=== PATIENT | male | born 1960 | race African-American/Black ===

== ENCOUNTER 2016-08-29 23:49 | Emergency (ER) | payer OTHER ==
--- NOTE | 2016-08-29 23:55 | PDOC ---
History of Present Illness - General History Source: Patient Exam Limitations: No Limitations - History of Present Illness Initial Comments: 08/30/16 00:16 The patient is a 56 year old male, with a significant past medical history of 2 herniated discs, HTN and hypercholesterolemia, who presents to the emergency department with lower back pain that got severely worse today. The patient describes his back pain as knot sensation at the left side of his lower back. He ranks his pain a 10/10 in pain intensity. He reports the back pain shoots down his leg and has numbness in his LEs which has been a preexisting condition for about a month. He denies chest pain and shortness of breath. He denies fever, chills, headache and dizziness. He denies nausea, vomit, diarrhea and constipation. He denies dysuria, frequency, urgency and hematuria. Allergies: NKDA Social History: Current every day smoker. PCP: Dr. Neal <Abdoulaye Birch - Last Filed: 08/30/16 00:19> <Andreas Kelly - Last Filed: 08/30/16 00:44> - General Chief Complaint: Bleeding from Anus Stated Complaint: LOWER BACK PAIN Time Seen by Provider: 08/29/16 23:53 Past History <Abdoulaye Birch - Last Filed: 08/30/16 00:19> - Past Medical History Anemia: No Asthma: No Cancer: No Cardiac Disorders: No CVA: No COPD: No CHF: No Dementia: No Diabetes: No GI Disorders: No Disorders: No HTN: Yes Hypercholesterolemia: Yes Liver Disease: No Seizures: No Thyroid Disease: No - Surgical History Abdominal Surgery: Yes (HERNIA) - Immunization History Immunization Up to Date: Yes - Psycho/Social/Smoking Cessation Hx Anxiety: No Suicidal Ideation: No Smoking History: Current every day smoker Have you smoked in the past 12 months: Yes Number of Cigarettes Smoked Daily: 8 'Breaking Loose' booklet given: 04/11/16 Hx Alcohol Use: No Drug/Substance Use Hx: No Substance Use Type: None <Andreas Kelly - Last Filed: 08/30/16 00:44> - Past Medical History Allergies/Adverse Reactions: Allergies Allergy/AdvReac Type Severity Reaction Status Date / Time No Known Drug Allergies Allergy Verified 08/30/16 00:06 Home Medications: Ambulatory Orders Ibuprofen [Motrin -] 600 mg PO PRN PRN #0 02/03/16 Methocarbamol [Robaxin -] 750 mg PO Q8H #30 tablet 08/30/16 Review of Systems - Review of Systems Able to Perform ROS?: Yes Comments:: 08/30/16 00:16 CONSTITUTIONAL: No fever, no chills, no fatigue EYES: No visual changes ENT: No ear pain, no sore throat CARDIOVASCULAR: No chest pain, no palpitations RESPIRATORY: No cough, no SOB GI: Yes rectal bleeding No abdominal pain, no nausea, no vomiting, no constipation, no diarrhea GENITOURINARY: No dysuria, no frequency, no hematuria MUSKULOSKELETAL: Yes back pain, no joint pain, no myalgias SKIN: No rash NEURO: No headache <Abdoulaye Birch - Last Filed: 08/30/16 00:19> *Physical Exam - Vital Signs Last Vital Signs Temp Pulse Resp BP Pulse Ox 98.6 F 87 14 144/96 98 08/30/16 00:06 08/30/16 00:06 08/30/16 00:06 08/30/16 00:06 08/30/16 00:06 - Physical Exam Comments: 08/30/16 00:19 CONSTITUTIONAL: Well-appearing; well-nourished; in no apparent distress HEAD: Normocephalic; atraumatic EYES: PERRL; EOM intact ENMT: External appears normal; normal oropharynx NECK: Supple; non-tender; no cervical lymphadenopathy CARD: Normal S1, S2; no murmurs, rubs, or gallops RESP: Normal chest excursion with respiration; breath sounds clear and equal bilaterally; no wheezes, rhonchi, or rales ABD: Soft, non-distended; non-tender; no palpable organomegaly, no palpable hernias EXT: Normal ROM in all four extremities; non-tender to palpation; distal pulses intact SKIN: Warm, dry, no rash BACK: Reproducible left paraspinal tenderness on palpation. NEURO: No focal neurological deficiencies. <Abdoulaye Birch - Last Filed: 08/30/16 00:19> Medical Decision Making - Medical Decision Making 08/30/16 00:43 Patient is a well-appearing 56-year-old male with history of chronic low back pain who presents with atraumatic left paraspinal discomfort and persistent left lower extremity paresthesias. In the ER, patient is awake and alert, afebrile, with reproducible left paraspinal lumbar tenderness to palpation area straight leg raise is negative bilaterally. DTRs are +2 bilaterally. I do not suspect cauda equina or conus medullaris syndrome at this time. We'll administer NSAIDs and will discharge with muscle relaxants with outpatient follow-up as needed. <Andreas Kelly - Last Filed: 08/30/16 00:44> *DC/Admit/Observation/Transfer - Attestations Scribe Attestion: 08/30/16 00:16 Documentation prepared by Abdoulaye Birch, acting as hospital medical biller for Andreas Kelly MD. <Abdoulaye Birch - Last Filed: 08/30/16 00:19> - Attestations Physician Attestion: 08/30/16 00:42 The documentation was prepared by the scribe under my direct supervision. I have reviewed the documentation which correctly represents the findings, medical decision-making and critical action taken by me. <Andreas Kelly - Last Filed: 08/30/16 00:44> Diagnosis at time of Disposition: Low back pain Qualifiers: Chronicity: acute Back pain laterality: left Sciatica presence: with sciatica Sciatica laterality: sciatica of left side Qualified Code(s): M54.42 - Lumbago with sciatica, left side - Discharge Dispostion Disposition: HOME Condition at time of disposition: Stable - Referrals Referrals: [place] Neal MD [Primary Care Provider] - - Patient Instructions Printed Discharge Instructions: DI for Low Back Pain
[2016-08-30 00:09] VITALS: BP 144/96; PULSE 87; TEMP 98.6; BMI 28.8
[2016-08-30] MEDS ORDERED: KETOROLAC TROMETHAMINE 60 MG/2 ML VIAL ONE (00:14)
[2016-08-30] MEDS ORDERED: KETOROLAC TROMETHAMINE 60 MG/2 ML VIAL IM ONE (00:14)
[2016-08-30] MEDS ORDERED: IBUPROFEN 400 MG TABLET (FP) PO ONE ×2 (00:41→00:48)
== END 2016-08-30 01:00 | disposition home or self-care (01) ==
LOC: JER 23:49
PROC: 3E0233Z Introduction of Anti-inflammatory into Muscle, Percutaneous Approach (ICD-10-PCS; principal; 2016-08-29)
DX: M54.42 Lumbago with sciatica, left side (principal)
CPT/HCPCS: 99282-25

== ENCOUNTER 2016-12-21 06:29 | Emergency (ER) | payer OTHER ==
[2016-12-21 07:17] VITALS: TEMP 98.1; BMI 29.2
--- NOTE | 2016-12-21 07:56 | PDOC ---
Attending Attestation - Resident Resident Name: Tim Casillas - ED Attending Attestation I have performed the following: I have examined & evaluated the patient, The case was reviewed & discussed with the resident, I agree w/resident's findings & plan, Exceptions are as noted - HPI HPI: 56 yo M presents with L low back pain. He states that he has history of herniated discs, currently following up with neuro and PMD as an outpatient. Usually he takes 800 mg motrin for his pain, but recently it has not been helping. He had a similar episode with pain in August of this year, improved with muscle relaxer. Pain is not as bad today. Pain is moderate, constant, unrelieved by motrin, localizing to L low back. He notes that the pain started after receiving a spinal injection. - Physicial Exam PE: GENERAL: Awake, alert, and fully oriented, in no acute distress HEAD: No signs of trauma EYES: PERRLA, EOMI, sclera anicteric, conjunctiva clear ENT: Auricles normal inspection, hearing grossly normal, nares patent, oropharynx clear without exudates. Moist mucosa NECK: Normal ROM, supple, no lymphadenopathy, JVD, or masses LUNGS: Breath sounds equal, clear to auscultation bilaterally. No wheezes, and no crackles HEART: Regular rate and rhythm, normal S1 and S2, no murmurs, rubs or gallops ABDOMEN: Soft, nontender, normoactive bowel sounds. No guarding, no rebound. No masses EXTREMITIES: Normal range of motion, no edema. No clubbing or cyanosis. No cords, erythema, or tenderness NEUROLOGICAL: Cranial nerves II through XII grossly intact. Normal speech, normal gait SKIN: Warm, Dry, normal turgor, no rashes or lesions noted. SPINE: No midline tenderness. +Left lumbar paraspinal soft tissue tenderness. - Medical Decision Making 56 yo M history low back pain presents with L low back pain. DDx includes MSK pain, sciatica, UTI, poss kidney stone; with MSK psin being most likely cause. Will give NSAID, muscle relaxer and reassess. May require additional analgesic.
--- NOTE | 2016-12-21 07:58 | PDOC ---
History of Present Illness - General Chief Complaint: Back Pain Stated Complaint: LOWER BACK PAIN Time Seen by Provider: 12/21/16 07:16 History Source: Patient Exam Limitations: No Limitations - History of Present Illness Initial Comments: 56 yo M with h/o sciatica 2/2 disc herniation, HTN, HLD presented to the ED with worsening L flank pain x 1 day. He stated that he has chronic lower back pain at baseline but last night he experienced new pain in the LL flank, non- radiating, 5/10, woke him up from sleep, worse with leaning backward. He's on gabapentin and motrin for his chronic lower back pain and he follows neurologist , orthopedic surgeon and PMD on a regular basis. Denies fever, chills, sob, chest pain, n/v, urinary or bowel symptoms. Past History - Past Medical History Allergies/Adverse Reactions: Allergies Allergy/AdvReac Type Severity Reaction Status Date / Time No Known Drug Allergies Allergy Verified 12/21/16 06:46 Home Medications: Ambulatory Orders Ibuprofen [Motrin -] 600 mg PO PRN PRN #0 02/03/16 Methocarbamol [Robaxin -] 750 mg PO Q8H #30 tablet 08/30/16 Methocarbamol [Robaxin -] 500 mg PO BID #24 tablet 12/21/16 Anemia: No Asthma: No Cancer: No Cardiac Disorders: No CVA: No COPD: No CHF: No Dementia: No Diabetes: No GI Disorders: No Disorders: No HTN: Yes Hypercholesterolemia: Yes Liver Disease: No Seizures: No Thyroid Disease: No - Surgical History Abdominal Surgery: Yes (HERNIA) - Immunization History Immunization Up to Date: Yes - Psycho/Social/Smoking Cessation Hx Anxiety: No Suicidal Ideation: No Smoking History: Never smoked Have you smoked in the past 12 months: No Number of Cigarettes Smoked Daily: 8 Information on smoking cessation initiated: No 'Breaking Loose' booklet given: 04/11/16 Hx Alcohol Use: No Drug/Substance Use Hx: No Substance Use Type: None Review of Systems - Review of Systems Able to Perform ROS?: Yes Is the patient limited Khmer proficient: No Constitutional: No: Chills, Fever Respiratory: No: Cough, Shortness of Breath Cardiac (ROS): No: Chest Pain ABD/GI: No: Nausea, Vomiting : No: Dysuria Musculoskeletal: Yes: Back Pain, Joint Pain, Muscle Pain Neurological: Yes: Numbness (lower extremities) *Physical Exam - Vital Signs Last Vital Signs Temp Pulse Resp BP Pulse Ox 98.1 F 72 20 146/97 100 12/21/16 06:46 12/21/16 06:46 12/21/16 06:46 12/21/16 06:46 12/21/16 06:46 - Physical Exam General Appearance: No: Apparent Distress Neck: positive: Trachea midline, Supple Respiratory/Chest: positive: Lungs Clear, Normal Breath Sounds Cardiovascular: positive: Regular Rhythm, Regular Rate, S1, S2. negative: Murmur Gastrointestinal/Abdominal: positive: Normal Bowel Sounds. negative: Distended , Guarding, Rebound, Tenderness Musculoskeletal: positive: CVA Tenderness (L), Other (LL flank pain, reproducible, local tenderness upon touch) Neurologic: positive: Fully Oriented, Alert, Motor Strength 5/5, Numbness Medical Decision Making - Medical Decision Making 12/21/16 09:43 UA shows microscopic hematuria +[address] shows 3mm stone but no hydronephrosis. Will discharge the patient home and instruct the patient to follow up with his urologist, neurologist, and PMD as scheduled *DC/Admit/Observation/Transfer Diagnosis at time of Disposition: Acute left flank pain - Discharge Dispostion Disposition: HOME Condition at time of disposition: Stable Admit: No - Prescriptions Prescriptions: Methocarbamol [Robaxin -] 500 mg PO BID #24 tablet - Referrals Referrals: [place] Neal MD [Primary Care Provider] - Dilan Wells MD [Staff Physician] - - Patient Instructions Additional Instructions: Your lower left flank pain is likely related to your chronic lower back pain, for which you should continue to take roboxin and motrin as needed. For terminal worker relief, you should continue to follow up with your PMD, neurologist and urologist on a regular basis. Come back in the ER if you experience worse pain with motion, fever or chills.
[2016-12-21] MEDS ORDERED: IBUPROFEN 600 MG TABLET (FP) PO ONE ×2 (07:59→08:05)
[2016-12-21] MEDS ORDERED: METHOCARBAMOL 500 MG TABLET PO ONE (07:59)
[2016-12-21] MEDS ORDERED: METHOCARBAMOL 500 MG TABLET ONE (08:05)
[2016-12-21 08:21] LABS: URINE APPEARANCE CLEAR; URINE BILIRUBIN NEGATIVE (NEGATIVE); URINE COLOR STRAW; URINE GLUCOSE (UA) NEGATIVE (NEGATIVE); URINE KETONE NEGATIVE (NEGATIVE); URINE LEUK ESTERASE NEGATIVE (NEGATIVE); URINE NITRITE NEGATIVE (NEGATIVE); URINE PROTEIN NEGATIVE (NEGATIVE); URINE UROBILINOGEN NEGATIVE E.U./dl (0.2-1.0)
[2016-12-21 08:40] LABS: URINE BLOOD 3+ (NEGATIVE)
[2016-12-21 10:17] LABS: URINE MUCUS RARE; URINE RBC 334 /hpf (0-3); URINE WBC 1 /hpf (3-5)
[2016-12-21 10:18] VITALS: BP 133/80; PULSE 71
== END 2016-12-21 10:18 | disposition home or self-care (01) ==
LOC: JER 06:29
DX: N20.0 Calculus of kidney (principal); M54.30 Sciatica, unspecified side; I10 Essential (primary) hypertension; E78.00 Pure hypercholesterolemia, unspecified
CPT/HCPCS: 74176; 81003; 81015; 99282-25

== ENCOUNTER 2017-10-28 23:01 | Emergency (ER) | payer OTHER ==
[2017-10-28 23:21] VITALS: BP 137/73; PULSE 71; TEMP 98; BMI 28.3
[2017-10-29] MEDS ORDERED: KETOROLAC TROMETHAMINE 30 MG/1 ML VIAL IVPUSH ONE (00:25)
[2017-10-29] MEDS ORDERED: diazePAM 5 MG TABLET PO ONE (00:25)
[2017-10-29] MEDS ORDERED: ASPIRIN 325 MG ENTERIC COATED TABLET (FP) PO ONE (00:25)
[2017-10-29] MEDS ORDERED: ASPIRIN 325 MG ENTERIC COATED TABLET (FP) ONE (01:29)
[2017-10-29] MEDS ORDERED: diazePAM 5 MG TABLET ONE (01:30)
[2017-10-29] MEDS ORDERED: KETOROLAC TROMETHAMINE 30 MG/1 ML VIAL ONE (01:30)
--- NOTE | 2017-10-29 01:37 | PDOC ---
History of Present Illness - General Chief Complaint: Pain Stated Complaint: PAIN Time Seen by Provider: 10/29/17 00:11 History Source: Patient Exam Limitations: No Limitations - History of Present Illness Initial Comments: 10/29/17 01:28 Patient is a 57-year-old male with history of arthritis, hypertension, HLD - diet control, chronic back pain, carpal tunnel surgery, inguinal hernia repair bilateral, complaining of chest pain which started today. was driving and he had sudden onset of shortness of breath and had chest pressure which lasted for few mins. States today which going to bed about 11pm the chest pain and sob returned. States chest pain is midsternal, pressure-like, 10. He attributes this chest pain having a lot of stress about his chronic medical condition and his inability to get the needed surgery due to insurance. Patient is also here for his chronic back pain. States he is in pain every day , but today it is worse. He took Motrin this morning with no relief. States initially comes stating emergency room and he is given a shot of medication in the IV which makes him feel better. PMD: Dr. Rosen Pain management: Dr. Wade Orthopedics: Dr. Reid All: NKDA GENERAL/CONSTITUTIONAL: [No fever or chills. No weakness. No weight change.] HEAD, EYES, EARS, NOSE AND THROAT: [No change in vision. No ear pain or discharge. No sore throat.] CARDIOVASCULAR: (+)chest pain or shortness of breath.] RESPIRATORY: [No cough, wheezing, or hemoptysis.] GASTROINTESTINAL: [No nausea, vomiting, diarrhea or constipation. No rectal bleeding.] GENITOURINARY: [No dysuria, frequency, or change in urination.] MUSCULOSKELETAL: (+) joint or muscle swelling or pain. No neck (+) back pain.] SKIN AND BREASTS: [No rash or easy bruising.] NEUROLOGIC: [No headache, vertigo, loss of consciousness, or loss of sensation.] PSYCHIATRIC: [No depression or anxiety.] ENDOCRINE: [No increased thirst. No abnormal weight change.] HEMATOLOGIC/LYMPHATIC: [No anemia, easy bleeding, or history of blood clots.] ALLERGIC/IMMUNOLOGIC: [No hives or skin allergy. No latex allergy.] GENERAL: [The patient is awake, alert, and fully oriented, in painful distress.] HEAD: [Normal with no signs of trauma.] EYES: [Pupils equal, round and reactive to light, extraocular movements intact, sclera anicteric, conjunctiva clear.] ENT: [Ears normal, nares patent, oropharynx clear without exudates. Moist mucous membranes.] NECK: [Normal range of motion, supple without lymphadenopathy, JVD, or masses.] LUNGS: [Breath sounds equal, clear to auscultation bilaterally. No wheezes, and no crackles.] HEART: [Regular rate and rhythm, normal S1 and S2 without murmur, rub.] ABDOMEN: [Soft, nontender, normoactive bowel sounds. No guarding, no rebound. No masses.] BACK: Paraspinal lumbar tenderness EXTREMITIES: [Normal range of motion, no edema. No clubbing or cyanosis. No cords, erythema, or tenderness.] NEUROLOGICAL: [Cranial nerves II through XII grossly intact. Normal speech, normal gait.] PSYCH: [Normal mood, normal affect.] SKIN: [Warm, Dry, normal turgor, no rashes or lesions noted.] Past History - Past Medical History Allergies/Adverse Reactions: Allergies Allergy/AdvReac Type Severity Reaction Status Date / Time No Known Drug Allergies Allergy Verified 10/28/17 23:16 Home Medications: Ambulatory Orders Methocarbamol [Robaxin -] 750 mg PO Q8H #30 tablet 08/30/16 Diclofenac Sodium [Diclo Gel] 1 each TP BID 10/29/17 Diclofenac Sodium [Diclofenac Sodium ER] 100 mg PO DAILY 10/29/17 Ibuprofen 800 mg PO TID PRN 10/29/17 Indomethacin 50 mg PO DAILY 10/29/17 Melatonin 5 mg PO HS 10/29/17 Meloxicam 15 mg PO DAILY 10/29/17 Trazodone HCl 50 mg PO DAILY 10/29/17 Anemia: No Asthma: No Cancer: No Cardiac Disorders: No CVA: No COPD: No CHF: No Dementia: No Diabetes: No GI Disorders: No Disorders: No HTN: Yes Hypercholesterolemia: Yes Liver Disease: No Seizures: No Thyroid Disease: No - Surgical History Abdominal Surgery: Yes (B/l inguinal hernias) - Immunization History Immunization Up to Date: Yes - Suicide/Smoking/Psychosocial Hx Smoking History: Current every day smoker Have you smoked in the past 12 months: No Number of Cigarettes Smoked Daily: 8 Information on smoking cessation initiated: No 'Breaking Loose' booklet given: 04/11/16 Hx Alcohol Use: No Drug/Substance Use Hx: No Substance Use Type: None Cardiac Specific PMH - Complaint Specific PMHX Pacemaker: No *Physical Exam - Vital Signs Last Vital Signs Temp Pulse Resp BP Pulse Ox 98.0 F 71 20 137/73 98 10/28/17 23:16 10/28/17 23:16 10/28/17 23:16 10/28/17 23:16 10/29/17 00:15 ED Treatment Course - LABORATORY CBC & Chemistry Diagram: 10/29/17 01:45 10/29/17 02:50 - ADDITIONAL ORDERS Additional order review: Laboratory Results 10/29/17 10/29/17 10/29/17 02:50 01:45 01:44 PT with INR 10.40 INR 0.92 Sodium 143 Cancelled Potassium 4.0 Cancelled Chloride 108 H Cancelled Carbon Dioxide 22 D Cancelled Anion Gap 13 Cancelled BUN 23 H D Cancelled Creatinine 0.9 Cancelled Creat Clearance w eGFR > 60 Random Glucose 97 Cancelled Calcium 8.5 Cancelled Total Bilirubin 0.4 AST 20 ALT 24 Alkaline Phosphatase 92 Creatine Kinase 399 H Cancelled Troponin I 0.03 Cancelled Total Protein 6.6 Albumin 3.3 L 10/29/17 01:45 RBC 5.83 H MCV 80.9 MCHC 34.0 RDW 14.2 MPV 8.3 Neutrophils % 59.7 Lymphocytes % 29.9 D Monocytes % 7.3 Eosinophils % 2.8 D Basophils % 0.3 - RADIOLOGY Radiology Studies Ordered: Category Date Time Status CHEST PA & LAT [RAD] Stat Radiology 10/29/17 00:23 Taken - Medications Given in the ED: ED Medications Discontinued Medications Generic Name Dose Route Start Last Admin Trade Name Freq PRN Reason Stop Dose Admin Aspirin 325 mg 10/29/17 00:25 10/29/17 01:40 Ecotrin - PO 10/29/17 00:26 325 mg ONCE ONE Administration Diazepam 5 mg 10/29/17 00:25 10/29/17 01:41 Valium - PO 10/29/17 00:26 5 mg ONCE ONE Administration Ketorolac Tromethamine 30 mg 10/29/17 00:25 10/29/17 01:41 Toradol Injection - IVPUSH 10/29/17 00:26 30 mg ONCE ONE Administration Medical Decision Making - Medical Decision Making 10/29/17 01:38 Patient is a 57-year-old male with history of arthritis, hypertension, HLD - diet control, chronic back pain, carpal tunnel surgery, inguinal hernia repair bilateral, complaining of chest pain which started today. Patient has hypertension hyperlipidemia and is at some risk will get trop x 2. labs, asa Also complaining of lower back pain which is chronic did not take meds. will given toradol and valium for the pain. EKG: Sinus rhythm 62, and right ear, T-wave inversion to II, III, aVF, V5 and V6 10/29/17 01:55 cxr neg 10/29/17 03:57 labs reviewed not acute finding trop neg. However patient is not willing to wait for repeat enzymes. States wants to sign out AMA. *DC/Admit/Observation/Transfer Diagnosis at time of Disposition: Chest pain Qualifiers: Chest pain type: unspecified Qualified Code(s): R07.9 - Chest pain, unspecified - Discharge Dispostion Disposition: AGAINST MEDICAL ADVICE Condition at time of disposition: Stable - Referrals Referrals: Emigdio Reid MD [Primary Care Provider] - - Patient Instructions Additional Instructions: Follow-up with her PMD in 24 hours for further testing and referral to cardiology for evaluation. - Post Discharge Activity
[2017-10-29 02:22] LABS: BASO % 0.3 % (0-2.0); EOS % 2.8 % (0-4.5); HEMATOCRIT 47.2 % (35.4-49); LYMPH % 29.9 % (8-40); MCH 27.5 pg (25.7-33.7); MEAN CELL VOLUME 80.9 fl (80-96); MEAN PLT VOLUME 8.3 fl (7.5-11.1); MONO % 7.3 % (3.8-10.2); NEUT % 59.7 % (42.8-82.8); PLATELET COUNT 203 K/MM3 (134-434); RBC 5.83 M/mm3 (4.00-5.60); RDW 14.2 % (11.9-15.9); WHITE BLOOD COUNT 8.7 K/mm3 (4.0-10.0)
[2017-10-29 02:35] LABS: INR 0.92 (0.82-1.09); PROTHROMBIN TIME (PATIENT) 10.4 SEC (9.98-11.88)
[2017-10-29 03:38] LABS: ALBUMIN 3.3 g/dl (3.4-5.0); ANION GAP 13 (8-16); BILIRUBIN,TOTAL 0.4 mg/dL (0.2-1.0); BLOOD UREA NITROGEN 23 mg/dL (7-18); CALCIUM 8.5 mg/dL (8.5-10.1); CHLORIDE 108 mmol/L (98-107); CO2 22 mmol/L (21-32); CREATININE 0.9 mg/dL (0.7-1.3); GLUCOSE,RANDOM 97 mg/dL (74-106); SGOT/AST 20 U/L (15-37); SGPT/ALT 24 U/L (12-78); SODIUM 143 mmol/L (136-145); TOT PROT 6.6 g/dl (6.4-8.2)
[2017-10-29 03:41] LABS: ALK PHOS 92 U/L (45-117)
--- NOTE | 2017-10-29 09:58 | EKG ---
Test Reason : Blood Pressure : / mmHG Vent. Rate : 062 BPM Atrial Rate : 062 BPM P-R Int : 144 ms QRS Dur : 100 ms QT Int : 378 ms P-R-T Axes : 061 037 -48 degrees QTc Int : 383 ms NORMAL SINUS RHYTHM T WAVE ABNORMALITY, CONSIDER INFEROLATERAL ISCHEMIA ABNORMAL ECG WHEN COMPARED WITH ECG OF 05-DEC-2009 12:49, T WAVE INVERSION MORE EVIDENT IN INFERIOR LEADS INVERTED T WAVES HAVE REPLACED NONSPECIFIC T WAVE ABNORMALITY IN LATERAL LEADS Confirmed by GILLIAN ARIAS MD ([id number]) on 10/29/2017 9:58:23 AM Referred By: Confirmed By:GILLIAN ARIAS MD
== END 2017-10-29 04:16 | disposition left against medical advice (07) ==
LOC: JER 23:01
PROC: 3E0333Z Introduction of Anti-inflammatory into Peripheral Vein, Percutaneous Approach (ICD-10-PCS; principal; 2017-10-28)
DX: R07.9 Chest pain, unspecified (principal); I10 Essential (primary) hypertension; E78.00 Pure hypercholesterolemia, unspecified; M12.9 Arthropathy, unspecified; M54.89 Other dorsalgia; G89.29 Other chronic pain
CPT/HCPCS: 36415; 71046-TC-FY; 80053; 82550; 82553; 84484; 85025; 85610; 93005; 93010; 99283-25

== ENCOUNTER 2018-03-17 10:00 | Inpatient (IN) | payer OTHER ==
[2018-03-04 14:18] VITALS: BMI 29.5
--- NOTE | 2018-03-16 17:58 | HP ---
Admitting History and Physical - Admission Chief Complaint: right knee osteoarthritis x years History of Present Illness: 57 year old male presents regarding his right knee. Longstanding history of right knee osteoarthritis. He complains of pain, limited ROM, difficulty ambulating and difficulty with activities of daily living. Patient has failed conservative treatment measures including PO medication, activity modification, exercise programs and injections. At this point, patient wishes to proceed with surgical intervention - right total knee arthroplasty, MAKOplasty. History Source: Patient - Past Medical History Cardiovascular: Yes: HTN Musculoskeletal: Yes: Osteoarthritis - Past Surgical History Additional Past Surgical History: See written history & physical. - Smoking History Smoking history: Current every day smoker Have you smoked in the past 12 months: Yes Aproximately how many cigarettes per day: 15 - Alcohol/Substance Use Hx Alcohol Use: No (RARE) Home Medications - Allergies Allergies/Adverse Reactions: Allergies Allergy/AdvReac Type Severity Reaction Status Date / Time No Known Drug Allergies Allergy Verified 03/04/18 14:05 - Home Medications Home Medications: Ambulatory Orders Diclofenac Sodium [Diclofenac Sodium ER] 100 mg PO DAILY PRN 10/29/17 Ibuprofen 600 mg PO BID PRN 03/04/18 Losartan Potassium 50 mg PO DAILY 03/04/18 Methocarbamol 500 mg PO BID PRN 03/04/18 Multivitamin [One Daily] 1 each PO DAILY 03/04/18 Review of Systems - Review of Systems Musculoskeletal: reports: Crepitus (right knee), Decreased ROM (right knee), Joint Pain (right knee), Joint Swelling (right knee) Physical Examination Constitutional: Yes: Well Nourished, No Distress Eyes: Yes: Conjunctiva Clear HENT: Yes: Atraumatic, Normocephalic Neck: Yes: Supple Cardiovascular: Yes: Regular Rate and Rhythm Respiratory: Yes: Regular Gastrointestinal: Yes: Soft ...Rectal Exam: Yes: Deferred Musculoskeletal: Yes: Joint Stiffness (right knee), Joint Swelling (right knee) Assessment/Plan 57 year old male presents regarding his right knee. Longstanding history of right knee osteoarthritis. He complains of pain, limited ROM, difficulty ambulating and difficulty with activities of daily living. Patient has failed conservative treatment measures including PO medication, activity modification, exercise programs and injections. At this point, patient wishes to proceed with surgical intervention - right total knee arthroplasty, MAKOplasty. Pros, cons, risks, benefits and alternatives of a right total knee arthroplasty, MAKOplasty - were discussed with the patient at length. Patient confirms his understanding and consents to proceed with a right total knee arthroplasty, MAKOplasty.
[~2018-03-17 10:00] MED LIST: CEFAZOLIN 2 GM in DEXTROSE 5%-WATER - 50 ML IVPB ONE; CELECOXIB 200 MG CAPSULE PO ONE; GABAPENTIN 300 MG CAPSULE (FP) PO ONE; PANTOPRAZOLE 40 MG TABLET (FP) PO ONE; ROPIVICAINE 0.2%/MORPH PF/KETOROLAC - 51ML DISP.SYRINGE IA ONE; TRANEXAMIC ACID 1000 MG/10 ML VIAL IVPUSH ONE; oxyCODONE HCL 10 MG SUSTAINED ACTING TABLET PO ONE
[2018-03-17] MEDS ORDERED: PANTOPRAZOLE 40 MG TABLET (FP) ONE (10:18)
[2018-03-17] MEDS ORDERED: CELECOXIB 200 MG CAPSULE ONE (10:19)
[2018-03-17] MEDS ORDERED: oxyCODONE HCL 10 MG SUSTAINED ACTING TABLET ONE (10:19)
[2018-03-17] MEDS ORDERED: GABAPENTIN 300 MG CAPSULE (FP) ONE (10:19)
[2018-03-17] MEDS ORDERED: ROPIVICAINE 0.2%/MORPH PF/KETOROLAC - 51ML DISP.SYRINGE IA ONE ×2 (13:57→17:17)
[2018-03-17] MEDS ORDERED: VANCOMYCIN 1,000 MG VIAL (RESTRICTED TO ID ONLY) ONE (13:59)
[2018-03-17] MEDS ORDERED: ceFAZolin SODIUM 1 GM VIAL ONE ×2 (13:59→15:07)
[2018-03-17] MEDS ORDERED: TRANEXAMIC ACID 1000 MG/10 ML VIAL ONE ×2 (13:59→17:55)
[2018-03-17] MEDS ORDERED: MIDAZOLAM HCL 2 MG/2 ML SINGLE DOSE VIAL ONE ×2 (14:53→16:08)
[2018-03-17] MEDS ORDERED: BUPIVACAINE LIPOSOME/PF (EXPAREL) 266 MG/20 ML VIAL ONE (14:54)
[2018-03-17] MEDS ORDERED: ONDANSETRON 4 MG/2 ML VIAL ONE (15:07)
[2018-03-17] MEDS ORDERED: LIDOCAINE HCL/PF 2% SDV 5ML VIAL ONE (15:07)
[2018-03-17] MEDS ORDERED: ONDANSETRON 4 MG/2 ML VIAL IVPUSH PRN ×2 (16:09→19:38)
[2018-03-17] MEDS ORDERED: ePHEDrine SULFATE 50 MG/1 ML AMPULE ONE (16:40)
[2018-03-17] MEDS ORDERED: VANCOMYCIN 1,000 MG VIAL (RESTRICTED TO ID ONLY) IVPB ONE (17:17)
[2018-03-17] MEDS ORDERED: TRANEXAMIC ACID 1000 MG/10 ML VIAL IVPB ONE (17:19)
--- NOTE | 2018-03-17 19:37 | OP ---
Operative Note - Note: Operative Date: 03/17/18 Pre-Operative Diagnosis: right knee OA Operation: Right MAKOplasty TKA Post-Operative Diagnosis: Same as Pre-op Surgeon: Emigdio Reid Supervisor Respiratory: Sheyla Mcdonald Anesthesia: Spinal Estimated Blood Loss (mls): 200
[2018-03-17] MEDS ORDERED: MAGNESIUM HYDROX 2400MG/30ML ORAL SUSPENSION 30 ML CUP PO PRN (19:38)
[2018-03-17] MEDS ORDERED: MAG HYDROX/AL HYDROX/SIMETH 30 ML UNIT-DOSE CUP PO PRN (19:38)
[2018-03-17] MEDS ORDERED: ACETAMINOPHEN 1000 MG/100 ML VIAL (NON FORMULARY) IVPB ONE (19:40)
[2018-03-17] MEDS ORDERED: LACTATED RINGERS SOLUTION 1,000 ML IV SCH (19:45)
[2018-03-17] MEDS: traMADol HCL 50 MG TABLET PO SCH (20:40)
[2018-03-17] MEDS ORDERED: GABAPENTIN 300 MG CAPSULE (FP) PO SCH (22:00)
[2018-03-17] MEDS: KETOROLAC TROMETHAMINE 30 MG/1 ML VIAL IVPUSH SCH (22:24)
[2018-03-17] MEDS: GABAPENTIN 300 MG CAPSULE (FP) PO SCH (22:28)
[2018-03-17] MEDS: ASCORBIC ACID 500 MG TABLET (FP) PO SCH (22:28)
[2018-03-17] MEDS: oxyCODONE HCL 10 MG SUSTAINED ACTING TABLET PO SCH (22:28)
[2018-03-17] MEDS: CELECOXIB 200 MG CAPSULE PO SCH (22:30)
[2018-03-17] MEDS: SENNOSIDES/DOCUSATE COMBO (SENNA PLUS) TABLET (UD) PO SCH (22:30)
[2018-03-17] MEDS: ACETAMINOPHEN 325 MG TABLET (FP) PO SCH (22:38)
[2018-03-18] MEDS: ACETAMINOPHEN 325 MG TABLET (FP) PO SCH ×3 (01:32→12:45)
[2018-03-18] MEDS: CEFAZOLIN 2 GM in DEXTROSE 5%-WATER - 50 ML IVPB SCH ×2 (01:32→09:30)
[2018-03-18] MEDS: KETOROLAC TROMETHAMINE 30 MG/1 ML VIAL IVPUSH SCH ×3 (01:32→12:44)
[2018-03-18] MEDS ORDERED: DEXAMETHASONE SOD PHOSPHATE 10 MG/1 ML VIAL IVPB ONE (04:00)
[2018-03-18] MEDS: oxyCODONE HCL 5 MG TABLET PO PRN ×2 (04:57→17:45)
[2018-03-18] MEDS: traMADol HCL 50 MG TABLET PO SCH ×3 (06:56→12:45)
[2018-03-18 08:15] LABS: HEMOGLOBIN 14.8 GM/dl (11.7-16.9); MCH 26.5 pg (25.7-33.7); MCHC 32.3 g/dl (32.0-35.9); MEAN CELL VOLUME 82.1 fl (80-96); MEAN PLT VOLUME 8.2 fl (7.5-11.1); PLATELET COUNT 206 K/MM3 (134-434); RDW 13.1 % (11.9-15.9); WHITE BLOOD COUNT 12.4 K/mm3 (4.0-10.8)
[2018-03-18] MEDS: ASPIRIN 325 MG TABLET PO SCH (08:21)
[2018-03-18 08:29] LABS: ANION GAP 5 (8-16); BLOOD UREA NITROGEN 20 mg/dl (7-18); CALCIUM 8.8 mg/dl (8.4-10.2); CHLORIDE 107 mmol/L (98-107); CO2 24 mmol/L (22-28); CREATININE 1.1 mg/dl (0.6-1.3); GLUCOSE,RANDOM 97 mg/dl (74-106); POTASSIUM 4.3 mmol/L (3.5-5.1); SODIUM 136 mmol/L (136-145)
[2018-03-18] MEDS: CELECOXIB 200 MG CAPSULE PO SCH ×2 (09:30→23:02)
[2018-03-18] MEDS: SENNOSIDES/DOCUSATE COMBO (SENNA PLUS) TABLET (UD) PO SCH ×2 (09:30→23:02)
[2018-03-18] MEDS: oxyCODONE HCL 10 MG SUSTAINED ACTING TABLET PO SCH ×2 (09:31→23:02)
[2018-03-18] MEDS: GABAPENTIN 300 MG CAPSULE (FP) PO SCH ×2 (09:31→23:02)
[2018-03-18] MEDS: ASCORBIC ACID 500 MG TABLET (FP) PO SCH ×2 (09:31→23:03)
[2018-03-18] MEDS: PANTOPRAZOLE 40 MG TABLET (FP) PO SCH (09:31)
[2018-03-18] MEDS: LOSARTAN POTASSIUM 50 MG TABLET (FP) PO SCH (09:31)
[2018-03-18] MEDS: MULTIVITAMINS (DAILY MVI) TABLET (FP) PO SCH (09:34)
--- NOTE | 2018-03-18 10:30 | PN ---
Progress Note (short form) - Note Progress Note: 57M POD1 s/p R TKR under spinal anesthetic with peripheral nerve blocks for post operative pain relief. Pt states that pain is well controlled and reports no anesthetic complications. AVSS. Motor and sensory function intact in bilateral lower extremities. Continue current regimen.
[2018-03-18] MEDS: NICOTINE 21 MG/24 HOURS TOPICAL PATCH TD SCH (14:09)
--- NOTE | 2018-03-18 18:36 | PN ---
Progress Note (short form) - Note Progress Note: Pt seen and examined. Doing well. AVSS Selected Entries 03/18/18 03/18/18 22:00 23:05 Temperature 98.1 F Pulse Rate 58 L Respiratory 18 Rate Blood Pressure 75 Mean O2 Sat by Pulse 98 Oximetry (%) Oxygen Delivery Room Air Method Laboratory Tests 03/18/18 03/18/18 07:47 07:47 WBC 12.4 H Hgb 14.8 Hct 46.0 Plt Count 206 Sodium 136 Potassium 4.3 Chloride 107 Carbon Dioxide 24 Anion Gap 5 L BUN 20 H Creatinine 1.1 Creat Clearance w eGFR > 60 Random Glucose 97 Calcium 8.8 Gen: NAD RLE: c/d/i, NVID A/P s/p R TKA PT/OOB D/C home Wednesday
[2018-03-19] MEDS: ACETAMINOPHEN 325 MG TABLET (FP) PO SCH ×2 (00:38→07:30)
[2018-03-19] MEDS: traMADol HCL 50 MG TABLET PO SCH ×2 (02:00→08:05)
[2018-03-19] MEDS: oxyCODONE HCL 5 MG TABLET PO PRN ×2 (06:39→09:40)
[2018-03-19 07:03] VITALS: BP 117/46; PULSE 50; TEMP 97.9
[2018-03-19] MEDS: ASPIRIN 325 MG TABLET PO SCH (07:58)
[2018-03-19 09:07] LABS: HEMATOCRIT 41.7 % (35.4-49); HEMOGLOBIN 13.9 GM/dl (11.7-16.9); MCH 27.1 pg (25.7-33.7); MCHC 33.3 g/dl (32.0-35.9); MEAN CELL VOLUME 81.5 fl (80-96); MEAN PLT VOLUME 8.9 fl (7.5-11.1); PLATELET COUNT 196 K/MM3 (134-434); RBC 5.12 M/mm3 (4.00-5.60); RDW 13.5 % (11.9-15.9); WHITE BLOOD COUNT 15.2 K/mm3 (4.0-10.8)
[2018-03-19] MEDS: CELECOXIB 200 MG CAPSULE PO SCH (09:59)
[2018-03-19] MEDS: oxyCODONE HCL 10 MG SUSTAINED ACTING TABLET PO SCH (09:59)
[2018-03-19] MEDS: GABAPENTIN 300 MG CAPSULE (FP) PO SCH (09:59)
[2018-03-19] MEDS: LOSARTAN POTASSIUM 50 MG TABLET (FP) PO SCH (09:59)
[2018-03-19] MEDS: SENNOSIDES/DOCUSATE COMBO (SENNA PLUS) TABLET (UD) PO SCH (09:59)
[2018-03-19] MEDS: ASCORBIC ACID 500 MG TABLET (FP) PO SCH (10:00)
[2018-03-19] MEDS: PANTOPRAZOLE 40 MG TABLET (FP) PO SCH (10:00)
[2018-03-19] MEDS: NICOTINE 21 MG/24 HOURS TOPICAL PATCH TD SCH (10:00)
[2018-03-19] MEDS: MULTIVITAMINS (DAILY MVI) TABLET (FP) PO SCH (10:00)
--- NOTE | 2018-03-19 12:23 | DS ---
Physical Examination Vital Signs: Vital Signs Temperature 97.9 F 03/19/18 06:00 Pulse Rate 50 L 03/19/18 06:00 Respiratory Rate 20 03/19/18 06:00 Blood Pressure 117/46 03/19/18 06:00 O2 Sat by Pulse Oximetry (%) 100 03/19/18 06:00 Labs: CBC, BMP 03/19/18 07:20 03/18/18 07:47 Discharge Summary Reason For Visit: RIGHT KNEE OSTEOARTHRITIS Current Active Problems Osteoarthritis of right knee (Acute) Procedures: Principal: right makayla TKA Hospital Course: Admitted for elective surgery. Procedure performed without complications. Pt received postoperative antibiotic prophylaxis and DVT ppx. Ambulated with physical therapy. Stable for discharge home with outpatient followup. Condition: Stable - Instructions Diet, Activity, Other Instructions: Dr. Reid - Knee Replacement Instructions Keep the Aquacel dressing on until removed by Dr. Reid in 10-14 days - it is antibacterial and waterproof and you can shower with it on. Call the office for a follow-up appointment with Dr. Reid in 10-14 days. [phone] Take one Aspirin 325mg daily for 6 weeks to prevent blood clots in your legs. Take one Pantoprazole 40mg daily for 6 weeks to protect against heartburn and ulcers. Take Cephalexin (antibiotic) 3x/day for 10 days to help prevent skin infection. Take Celebrex 200mg twice daily for 30 days to reduce swelling and inflammation. Take a multivitamin, stool softener, and extra Vitamin C supplement daily. For pain: *Mild pain (1-3/10): Take 1 Tramadol tablet every 4 hours as needed. Moderate pain (4-6/10): Take 1 Tramadol tablet and 1 Percocet tablet every 4 hours as needed. Severe pain (7-10/10): Take 1 Tramadol tablet and 2 Percocet tablets every 4 hours as needed. Activity: You can put as much weight on the operative leg as you want. Right after you get home, there will be a physical therapist coming to your house to help you walk around and bend/straighten your knee. After your follow-up appointment, you will be sent for more intensive outpatient physical therapy which will include machines and equipment that the home therapist cannot bring to your house. Always use a walker or cane for balance and to prevent falls. Expect to see swelling/bruising from the operative site all the way down to your toes. Wear the compression stocking on the operative side during the day to minimize how much swelling there is in your foot/ankle. Don't wear the stocking at night. You don't have to wear a stocking on the other side. Disposition: VNS/HOME HEALTH CARE - Home Medications Comprehensive Discharge Medication List: Ambulatory Orders Losartan Potassium 50 mg PO DAILY 03/04/18 Methocarbamol 500 mg PO BID PRN 03/04/18 Multivitamin [One Daily] 1 each PO DAILY 03/04/18 Winthrop-3 Fatty Acids [Winthrop-3] 1,000 mg PO DAILY 03/17/18 Ascorbic Acid [Vitamin C -] 500 mg PO BID tablet 03/19/18 Aspirin [ASA -] 325 mg PO DAILY@0800 tablet 03/19/18 Celecoxib [CeleBREX -] 200 mg PO BID #60 capsule 03/19/18 Cephalexin Monohydrate [Keflex -] 500 mg PO TID #30 capsule 03/19/18 Multivitamins [Multivit ([facility] Formulary)] 1 tab PO DAILY tab 03/19/18 Nicotine Patch [Nicoderm Patch -] 21 mg TD DAILY #30 patch 03/19/18 Oxycodone HCl/Acetaminophen [Percocet 5-325 mg Tablet] 1 - 2 tab PO Q4H PRN #60 tablet MDD 10 03/19/18 Pantoprazole Sodium [Protonix -] 40 mg PO DAILY #40 tablet.ec 03/19/18 Sennosides/Docusate Sodium [Pericolace -] 1 tablet PO BID tablet 03/19/18 traMADol HCL [Ultram -] 50 mg PO Q4H PRN #42 tablet MDD 6 03/19/18
--- NOTE | 2018-03-22 11:39 | PATH ---
Surgical Pathology Report Patient Name: JOHNNY LOERA Med. Rec. #: [id number] /Age/Gender: 1960 (Age: 57) / M Account: [id number] Location: [facility] MED-SURG Taken: 03/17/2018 Received: 03/17/2018 Reported: 03/22/2018 Physicians: Emigdio Reid M.D. Specimen(s) Received RIGHT KNEE BONE Clinical History Right knee osteoarthritis Final Diagnosis KNEE BONE, RIGHT, TOTAL KNEE REPLACEMENT: DEGENERATIVE JOINT DISEASE. Electronically Signed Citlaly Hathaway M.D. Gross Description Received in formalin labeled "right knee bone," is a 14.0 x 13.0 x 2.0 cm aggregate of multiple portions of bone and soft tissue. The tibial plateau measures 8.2 x 6.0 x 1.8 cm. There are multiple areas of eburnation present, measuring up to 3.3 cm in greatest dimension. The remaining articular surfaces are parson-brown and diffusely granular. The underlying trabecular bone is yellow and hard. [employer] sections are submitted in one cassette, following decalcification. 03/18/2018 [facility]03/18/2018
--- NOTE | 2018-03-31 00:32 | SPEC ---
DATE OF OPERATION: 03/17/2018 PREOPERATIVE DIAGNOSIS: Right knee osteoarthritis. POSTOPERATIVE DIAGNOSIS: Right knee osteoarthritis. PROCEDURE: Right total knee replacement with MAKOplasty robotic navigation. ATTENDING SURGEON: Emigdio Reid MD BILLET RECORDER: BISMARK Mike ANESTHESIA: Spinal plus sedation. ESTIMATED BLOOD LOSS: 200 mL. COMPLICATIONS: None. DISPOSITION: The patient was transferred to the PACU in stable condition. IMPLANTS USED: [place] triathlon size 5 femoral component, size 6 tibial component, 35-mm patellar component, 16-mm posterior stabilized polyethylene component. INDICATIONS: This is a 57-year-old male with a longstanding history of right knee osteoarthritis who presented to the office complaining of knee pain. He was seen and examined by Dr. Reid and it was determined that his arthritis was severe. He had undergone an extensive period of conservative management and had failed nonoperative treatment. He continued to have severe pain and ambulatory dysfunction. He was therefore indicated for a right total knee replacement. The risks, benefits, and alternatives to the surgery were explained to the patient in great detail. He elected to proceed with the procedure. DESCRIPTION OF PROCEDURE: On the day of surgery, the patient was taken to the operating room and placed on the OR table. Spinal anesthesia was administered by the anesthesiologist. The patient was then positioned supine on the table and all bony prominences were padded. The knee was then prepped and draped in the usual sterile fashion and intravenous antibiotics were given for infection prophylaxis. A surgical time-out was then performed with the team, and the patients identity, procedure, side, availability of implants, and the administration of antibiotics was confirmed. With the knee flexed, a midline incision was made and carried down through the subcutaneous fat to the underlying retinaculum. A medial parapatellar arthrotomy was performed. This was followed by a subperiosteal dissection of the tissue off the proximal, medial tibia. A portion of fat pad was removed from under the patellar tendon, and a small portion of fat was excised off the distal supracondylar femur. Electrocautery and an [employer] bipolar sealing device were used to achieve hemostasis. The knee was then flexed further and the anterior horn of the lateral meniscus was released from the midline. Next, the anterior and posterior cruciate ligaments were transected. Grade 4 changes were noted diffusely throughout the knee. Femoral and tibial checkpoints were then placed in the appropriate location using a mallet. Two parallel bicortical self-drilling pins were placed in the tibial diaphysis after making stab incisions and bluntly dissecting down to bone. Two pins were then placed in the distal supracondylar femur. The [employer] navigation arrays were then attached to both the femoral and tibial pins and the lower extremity was then registered to the robotic navigation device using various joint movements, as well as inputting several dozen reference points. The knee was then taken through a full range of motion with a corrective force applied. Alignment in varus/valgus as well as flexion/extension and soft tissue balance was measured in various positions. The navigation device showed a numerical and graphic representation of the soft tissue balance. The components were repositioned virtually using the software until optimal soft tissue balance was achieved on screen. Once this was accomplished, the final plan was saved and sent to the robot. Self-retaining retractors were then placed at the joint line for exposure and protection of the collateral ligaments. The robot was brought into the sterile field and registered with the navigation device. The robotic arm with attached oscillating saw blade was then used to perform femoral and tibial bone cuts as per the saved software plan. The femoral box cut was made using the appropriately sized manual cutting guide. The knee was then irrigated. Trial components were placed and the knee was taken through a full range of motion to assess soft tissue balance and alignment. The range of motion was found to be excellent and the soft tissue balance was optimal and according to plan. The knee was then put into extension and the patella everted. The synovium around the patella was circumscribed with electrocautery. A caliper was used to measure the patellar thickness and a saw was then used to resect the patella at the chondro-osseous junction. The cut surface was then sized and drilled for the appropriate patellar button, with care taken to medialize it. A trial patella was then placed and the knee was again taken through a full range of motion. The knee was found to have both good balance and good patellar tracking. All of the components were removed except the tibial base plate. The appropriate instrumentation was used to drill and punch the proximal tibia for the keel of the final component. All bony surfaces were then cleaned with pulsatile lavage and dried. Bone cement was then prepared on the back table, and final components were cemented in place in the usual fashion. Extruded cement was removed. The polyethylene trial was placed, the knee was put into extension, and axial pressure was applied for compression while the cement hardened. The patellar button was similarly cemented into place. Once the cement had hardened, the knee was taken through a full range of motion to assess stability, balance, and patellar tracking. This was found to be optimal and the trial polyethylene was exchanged for the appropriately sized real implant. The wound was then thoroughly irrigated with normal saline. A 3-minute dilute Betadine lavage was performed. The knee was again irrigated using a pulsatile lavage device. A periarticular injection was used to locally infiltrate the capsular tissues surrounding the implant and prosthesis. Then No. 1 Polysorb and 0 V-Loc 180 barbed sutures were used to close the arthrotomy. Then No. 1 Polysorb and 2-0 V-Loc 90 sutures were used in the subcutaneous tissues. Then 4-0 undyed Vicryl and Dermabond skin adhesive was used to close the stab incisions made for the navigation pins. The skin was closed using both 3-0 V-Loc 90 suture in a running subcuticular fashion and Dermabond skin adhesive. Once this was completed a sterile Aquacel dressing and compressive Ian-wrap was applied. The patient was then awakened and taken to the PACU in stable condition. Mary Anne [id number]
== END 2018-03-19 13:30 | disposition home health service (06) | DRG 302 ==
LOC: FM/S 10:00
PROVIDERS: ADMIT Student in an Organized Health Care Education/Training Program; ATTEND Student in an Organized Health Care Education/Training Program
PROC: 8E0Y0CZ Robotic Assisted Procedure of Lower Extremity, Open Approach (ICD-10-PCS; 2018-03-17)
PROC: 0SRC0J9 Replacement of Right Knee Joint with Synthetic Substitute, Cemented, Open Approach (ICD-10-PCS; principal; 2018-03-17 16:25)
DX: M17.11 Unilateral primary osteoarthritis, right knee (principal); I10 Essential (primary) hypertension
CPT/HCPCS: 36415; 73560-TC-RT-FY; 80048; 85027; 88304-TC; 88311-TC; 94760; 97116-GP; 97162-GP; J1100

== ENCOUNTER 2019-04-14 10:19 | Day surgery (SDC) | payer OTHER ==
[2019-04-11 15:43] VITALS: BMI 28.8
[2019-04-14] MEDS ORDERED: MIDAZOLAM HCL 2 MG/2 ML SINGLE DOSE VIAL ONE (11:39)
[2019-04-14] MEDS ORDERED: DEXAMETHASONE SOD PHOSPHATE 4 MG/1 ML VIAL ONE (11:43)
[2019-04-14] MEDS ORDERED: KETOROLAC TROMETHAMINE 30 MG/1 ML VIAL ONE (11:43)
[2019-04-14] MEDS ORDERED: ONDANSETRON 4 MG/2 ML VIAL ONE ×2 (11:43→13:53)
[2019-04-14] MEDS ORDERED: PROPOFOL 20 ML ONE ×2 (11:43)
[2019-04-14] MEDS ORDERED: LIDOCAINE HCL/PF 2% SDV 5ML VIAL ONE (11:43)
[2019-04-14] MEDS ORDERED: BUPIVACAINE HCL/PF 2.5 MG/ML - 30 ML VIAL IJ ONE (11:56)
[2019-04-14] MEDS ORDERED: ePHEDrine SULFATE 50 MG/1 ML AMPULE ONE (12:48)
[2019-04-14] MEDS ORDERED: PROMETHAZINE HCL 25 MG/1 ML VIAL IVPUSH PRN (13:08)
[2019-04-14] MEDS ORDERED: oxyCODONE HCL 5 MG TABLET PO PRN (13:08)
[2019-04-14] MEDS ORDERED: ONDANSETRON 4 MG/2 ML VIAL IVPUSH PRN (13:08)
[2019-04-14 15:09] VITALS: PULSE 46
[2019-04-14 15:43] VITALS: BP 111/67; TEMP 97.5
--- NOTE | 2019-04-15 09:07 | OP ---
DATE OF OPERATION: 04/14/2019 Done at [facility] SURGEON: Neymar Praish MD ONCOLOGY PATIENT NAVIGATOR: BISMARK Sharp PREOPERATIVE DIAGNOSES: 1. Left knee medial and lateral meniscal tear. 2. Left knee cartilage injury. 3. Left knee synovitis. POSTOPERATIVE DIAGNOSES: 1. Left knee medial and lateral meniscal tear. 2. Left knee cartilage injury. 3. Left knee synovitis. PROCEDURE PERFORMED: 1. Left knee arthroscopy with partial meniscectomy medial and lateral meniscus, CPT code 08227. 2. Left knee arthroscopy with chondroplasty and abrasion-plasty, CPT code 45123. 3. Left knee arthroscopy with synovectomy, CPT code 32816. FINDINGS: 1. Medial meniscus body and posterior horn tear. 2. Lateral meniscus posterior horn tear. 3. Synovitis patellofemoral medial and lateral notch. 4. Central grade 3 cartilage injury medial femoral condyle. 5. ACL and PCL intact. 6. Minor grade 1-2 changes . 7. Central grade 2 cartilage injury patella with grade 2-4 changes patellofemoral trochlea. PROCEDURE: Informed consent was obtained. The patient came to the operating room, where the lower extremity was prepped and draped in a sterile fashion. A tourniquet was placed on the upper thigh, but not inflated. Using standard arthroscopic technique, a lateral incision and portal was made to allow for introduction of the camera into the suprapatellar bursa. This was then taken to the medial joint line, where under direct visualization, a medial incision and portal was made. Excessive synovium noted in the medial, lateral and patellofemoral and notch area was removed by an upbiter, shaver and Bovie cautery. This was found to bring in inflammatory tissue into the joint surface, a source of pain and dysfunction. Probing of the medial and lateral meniscus found tears, as described in the findings. These were removed with the upbiter and shaver and taken back to a stable rim. Grade 2 to 3 degenerative changes were treated with a chondroplasty, removing all flaking surfaces with low-setting Bovie along the periphery to prevent further flaking. Grade 4 changes, as noted, were treated with an abrasoplasty, creating a bleeding surface at the bone/cartilage interface. Aggressive debridement with shaver/jonny created bleeding surface. Micro fracture also done when indicated in findings. All areas of the knee were once again reexamined. The knee was then drained and a single suture was placed in all portals. A sterile dressing was placed and the patient was transferred to the recovery room without complication. The PA listed above was present and assisted at surgery. Their presence was absolutely medically necessary for the completion of the procedure. They helped hold the arthroscopy, pass instruments (and implants when indicated) and the procedure could not have been completed without their assistance. NEYMAR PARISH M.D. [id number]
== END 2019-04-14 15:20 | disposition home or self-care (01) ==
LOC: FASU 10:19
PROVIDERS: ATTEND Orthopaedic Surgery
PROC: 0SBD4ZZ Excision of Left Knee Joint, Percutaneous Endoscopic Approach (ICD-10-PCS; 2019-04-14)
PROC: 0SBD4ZZ Excision of Left Knee Joint, Percutaneous Endoscopic Approach (ICD-10-PCS; 2019-04-14)
PROC: 0SBD4ZZ Excision of Left Knee Joint, Percutaneous Endoscopic Approach (ICD-10-PCS; principal; 2019-04-14 12:08)
DX: S83.242A Other tear of medial meniscus, current injury, left knee, initial encounter (principal); S83.282A Other tear of lateral meniscus, current injury, left knee, initial encounter; S83.8X2A Sprain of other specified parts of left knee, initial encounter; M65.862 Other synovitis and tenosynovitis, left lower leg; X58.XXXA Exposure to other specified factors, initial encounter; Y93.9 Activity, unspecified; Y92.9 Unspecified place or not applicable
CPT/HCPCS: 94760

== ENCOUNTER 2022-01-13 10:00 | Emergency (ER) | payer OTHER ==
[2022-01-13 10:17] VITALS: BP 136/84; PULSE 74; TEMP 98.1; BMI 27.3
[2022-01-13] MEDS ORDERED: DIPHTH,PERTUSS(ACELL),TET 0.5 ML DISP.SYRIN IM ONE ×2 (11:20→11:43)
== END 2022-01-13 12:21 | disposition home or self-care (01) ==
LOC: JERFT 10:00
PROC: 0HQBXZZ Repair Right Upper Arm Skin, External Approach (ICD-10-PCS; principal; 2022-01-13)
PROC: 3E0234Z Introduction of Serum, Toxoid and Vaccine into Muscle, Percutaneous Approach (ICD-10-PCS; 2022-01-13)
DX: S51.011A Laceration without foreign body of right elbow, initial encounter (principal); W10.9XXA Fall (on) (from) unspecified stairs and steps, initial encounter
CPT/HCPCS: 12002-25; 90471; 90715; 99284-25

== ENCOUNTER 2022-01-24 09:32 | Emergency (ER) | payer OTHER ==
[2022-01-24 09:45] VITALS: BP 163/79; PULSE 60; TEMP 97.9; BMI 26.6
== END 2022-01-24 10:38 | disposition home or self-care (01) ==
LOC: JER 09:32 → JERFT 09:32
DX: R21 Rash and other nonspecific skin eruption (principal); Z48.02 Encounter for removal of sutures
CPT/HCPCS: 99281-25

== ENCOUNTER 2022-04-13 11:51 | Emergency (ER) | payer OTHER ==
[2022-04-13 12:07] VITALS: TEMP 98.1; BMI 26.2
[2022-04-13] MEDS ORDERED: ACETAMINOPHEN 1000 MG/100 ML BAG IVPB ONE (14:39)
[2022-04-13] MEDS ORDERED: ACETAMINOPHEN 500 MG TABLET (FP) PO ONE (14:52)
[2022-04-13] MEDS ORDERED: ACETAMINOPHEN 500 MG TABLET (FP) ONE (14:57)
[2022-04-13 15:26] VITALS: BP 138/83; PULSE 53; RESP 18
== END 2022-04-13 15:35 | disposition home or self-care (01) ==
LOC: JER 11:51
PROC: 3E033NZ Introduction of Analgesics, Hypnotics, Sedatives into Peripheral Vein, Percutaneous Approach (ICD-10-PCS; principal; 2022-04-13)
DX: L03.116 Cellulitis of left lower limb (principal)
CPT/HCPCS: 93971-TC; 99284-25